=== PATIENT | male | born 1940 | race Caucasian/White ===

== ENCOUNTER 2016-10-18 22:38 | Observation (INO) | payer OTHER, MEDICARE ==
--- NOTE | 2016-10-18 22:53 | CPEKG ---
Heart Rate: 88 RR Interval: 682 P-R Interval: 180 QRSD Interval: 88 QT Interval: 328 QTC Interval: 397 P Powell: 63 QRS Powell: 59 T Wave Powell: 33 EKG Severity - NORMAL ECG - EKG Impression: SINUS RHYTHM Electronically Signed By: Ct Otoole 18-Oct-2016 23:48:08
[2016-10-18 23:13] LABS: % IMMATURE GRANULYOCYTES 0.5 % (0.0-1.1); ABSOLUTE IMMATURE GRANULOCYTES 0.06 10^3/uL (0.00-0.10); ADD DIFF? NO; ADD MORPH? NO; ADD SCAN? NO; ATYPICAL LYMPHOCYTE FLAG 0 (0-99); FRAGMENT RBC FLAG 0 (0-99); HEMATOCRIT 40.4 % (40.0-51.0); LEFT SHIFT FLG 0 (0-99); LIPEMIA HEMOLYSIS FLAG 90 (0-99); MEAN CELL HEMOGLOBIN 33.8 pg (27.9-34.1); MEAN CELL HEMOGLOBIN CONCENTR. 34.7 g/dL (32.4-36.7); MEAN CELL VOLUME 97.6 fL (81.5-99.8); MEAN PLATELET VOLUME 10.5 fL (8.7-11.7); PLATELET CLUMPS FLAG 10 (0-99); PLATELET COUNT 138 10^3/uL (150-400); RED BLOOD CELL COUNT 4.14 10^6/uL (4.40-6.38); RED CELL DISTRIBUTION WIDTH 11.3 % (11.5-15.2)
[2016-10-18 23:24] LABS: ANION GAP 10 mEq/L (8-16); CALCIUM 9.2 mg/dL (8.5-10.4); CARBON DIOXIDE 22 mEq/l (22-31); CHLORIDE 103 mEq/L (97-110); CREATININE 0.8 mg/dL (0.7-1.3); GLOMERULAR FILTRATION RATE > 60; GLUCOSE 130 mg/dL (70-100); POTASSIUM 4.1 mEq/L (3.5-5.2); SODIUM 135 mEq/L (134-144)
[2016-10-18 23:35] LABS: TROPONIN I < 0.012 ng/mL (0-0.034)
--- NOTE | 2016-10-18 23:36 | EDPHY ---
H & P Stated Complaint: SOB Time Seen by Provider: 10/18/16 23:16 HPI/ROS: HPI The patient presents with chest pain and shortness of breath which began 1-2 hours ago while sitting down watching television. His symptoms came on gradually and are moderate in severity. They have been constant. He feels a tight sensation in his mid sternum which does not radiate. This is worse when he takes a deep breath. He felt initially sweaty when his symptoms began. He is reporting mild nausea and mild dizziness. He returned 3 days ago from [facility] on a 10-12 hour flight. He does not have any leg swelling. He does not have any cough or fever. He has no personal or family history of DVT PE. He had routine cardiac stress testing about a year ago which was normal.. REVIEW OF SYSTEMS Constitutional: No fever, no chills. Eyes: No discharge. ENT: No sore throat. Cardiovascular: See HPI Respiratory: No cough, positive for shortness of breath. Gastrointestinal: No abdominal pain, no vomiting. Genitourinary: No hematuria. Musculoskeletal: No back pain. Skin: No rashes. Neurological: No headache. PMHx: Hyperlipidemia Soc Hx: Housed PHYSICAL General Appearance: Alert, no distress Eyes: Pupils equal and round no pallor or injection ENT, Mouth: Mucous membranes moist Respiratory: There are no retractions, lungs are clear to auscultation Cardiovascular: Regular rate and rhythm Gastrointestinal: Abdomen is soft and non-tender, no masses, bowel sounds normal Neurological: A&O, moves all extremities Skin: Warm and dry, no rashes Musculoskeletal: Neck is supple non tender Extremities: symmetrical, full range of motion Psychiatric: Patient is oriented X 3, there is no agitation Source: Patient Exam Limitations: No limitations - Personal History Current Tetanus/Diphtheria Vaccine: Yes Current Tetanus Diphtheria and Acellular Pertussis (TDAP): Yes - Medical/Surgical History Hx Asthma: No Hx Chronic Respiratory Disease: No Hx Diabetes: No Hx Cardiac Disease: No Hx Renal Disease: No Hx Cirrhosis: No Hx Alcoholism: No Hx HIV/AIDS: No Hx Splenectomy or Spleen Trauma: No Other PMH: penis surgery, nasal surgery - Social History Smoking Status: Never smoked Constitutional: Initial Vital Signs Heart Rate 93 10/18/16 22:43 Respiratory Rate 24 H 10/18/16 22:43 Blood Pressure 132/69 H 10/18/16 22:43 O2 Sat (%) 91 L 10/18/16 22:43 O2 Delivery Mode Room Air O2 (L/minute) 2 Allergies/Adverse Reactions: No Known Allergies Allergy (Unverified 10/18/16 22:41) Home Medications: Medication Instructions Recorded Lipitor 10/18/16 Lunesta 10/18/16 Medical Decision Making - Diagnostics EKG Interpretation: EKG: Complete interpretation has been separately recorded in the [facility]Page[employer] archive. Summary impression: Normal sinus rhythm Imaging Results: Imaging Impressions Chest X-Ray 10/18/16 22:53 Impression: Suspect early left lower lobe pneumonia.. CTA chest demonstrates no pulmonary embolism, atelectasis is present, no pneumonia as visualized, discussed with the radiologist. ED Course/Re-evaluation: The patient was monitored in the ER with improvement in his symptoms, treated with only supplemental oxygen. Labs were remarkable for elevated D-dimer, the CT scan of chest was performed which was unremarkable for PE, though did demonstrate a small amount of atelectasis. Given the patient was not symptom free, I plan to admit the patient to the hospitalist service, I have discussed the case with Dr. Gonzalez. Differential Diagnosis: This is a 76-year-old male who comes in with 1-2 hours of chest pain associated with shortness of breath. History is significant from our recent airplane flight of 10:12 a.m. hours. Differential diagnosis includes pulmonary embolism, pneumonia, ACS. - Data Points Laboratory Results: Laboratory Results 10/18/16 23:05 10/18/16 23:05 10/18/16 10/18/16 10/18/16 23:05 23:05 23:05 WBC 11.95 10^3/uL H 10^3/uL (3.80-9.50) RBC 4.14 10^6/uL L 10^6/uL (4.40-6.38) Hgb 14.0 g/dL g/dL (13.7-17.5) Hct 40.4 % % (40.0-51.0) MCV 97.6 fL fL (81.5-99.8) MCH 33.8 pg pg (27.9-34.1) MCHC 34.7 g/dL g/dL (32.4-36.7) RDW 11.3 % L % (11.5-15.2) Plt Count 138 10^3/uL L 10^3/uL (150-400) MPV 10.5 fL fL (8.7-11.7) Neut % (Auto) 84.9 % H % (39.3-74.2) Lymph % (Auto) 6.1 % L % (15.0-45.0) [place] % (Auto) 7.9 % % (4.5-13.0) Eos % (Auto) 0.3 % L % (0.6-7.6) Baso % (Auto) 0.3 % % (0.3-1.7) Nucleat RBC Rel Count 0.0 % % (0.0-0.2) Absolute Neuts (auto) 10.15 10^3/uL H 10^3/uL (1.70-6.50) Absolute Lymphs (auto) 0.73 10^3/uL L 10^3/uL (1.00-3.00) Absolute Monos (auto) 0.94 10^3/uL H 10^3/uL (0.30-0.80) Absolute Eos (auto) 0.04 10^3/uL 10^3/uL (0.03-0.40) Absolute Basos (auto) 0.03 10^3/uL 10^3/uL (0.02-0.10) Absolute Nucleated RBC 0.00 10^3/uL 10^3/uL (0-0.01) Immature Gran % 0.5 % % (0.0-1.1) Immature Gran # 0.06 10^3/uL 10^3/uL (0.00-0.10) D-Dimer 0.77 ug/mLFEU H ug/mLFEU (0.00-0.50) Sodium 135 mEq/L mEq/L (134-144) Potassium 4.1 mEq/L mEq/L (3.5-5.2) Chloride 103 mEq/L mEq/L (97-110) Carbon Dioxide 22 mEq/l mEq/l (22-31) Anion Gap 10 mEq/L mEq/L (8-16) BUN 17 mg/dL mg/dL (7-23) Creatinine 0.8 mg/dL mg/dL (0.7-1.3) Estimated GFR > 60 Glucose 130 mg/dL H mg/dL (70-100) Calcium 9.2 mg/dL mg/dL (8.5-10.4) Troponin I < 0.012 ng/mL ng/mL (0-0.034) Medications Given: Discontinued Medications Albuterol/Ipratropium (Duoneb) 3 ml IH EDNOW ONE Stop: 10/19/16 00:52 Last Admin: 10/19/16 01:38 Dose: 3 ml Ondansetron HCl (Zofran) 4 mg IVP EDNOW ONE Stop: 10/19/16 00:13 Last Admin: 10/19/16 00:13 Dose: 4 mg Departure - Departure Disposition: [facility] Inpatient Acute Clinical Impression: Chest pain Qualifiers: Chest pain type: unspecified Qualified Code(s): R07.9 - Chest pain, unspecified Condition: Fair
[2016-10-18] MEDS ORDERED: IOPAMIDOL (ISOVUE 370) 100 ML BTL IV ONE (23:38)
[2016-10-18] MEDS ORDERED: ONDANSETRON 4 MG/2 ML VIAL ONE (23:59)
[2016-10-19] MEDS ORDERED: ONDANSETRON 4 MG/2 ML VIAL IVP ONE (00:12)
[2016-10-19] MEDS ORDERED: IPRATROPIUM/ALBUTEROL 3 ML DEYVIAL IH ONE (00:51)
[2016-10-19] MEDS ORDERED: ONDANSETRON DISINTEGRATING 4 MG TAB PO PRN (01:20)
[2016-10-19] MEDS ORDERED: HYDROCODONE/APAP 5/325 TAB PO PRN (01:20)
[2016-10-19] MEDS ORDERED: ONDANSETRON 4 MG/2 ML VIAL IVP PRN (01:20)
[2016-10-19] MEDS ORDERED: ACETAMINOPHEN 325 MG TAB PO PRN (01:20)
[2016-10-19] MEDS ORDERED: ALBUTEROL 3 ML DEYVIAL IH PRN (01:20)
--- NOTE | 2016-10-19 01:28 | PDGENHP ---
History and Physical - Chief Complaint chest pain - History of Present Illness Patient is a 70 year old male with HLD who presents to the ED with complaint of substernal chest pain. Patient states symptoms started this afternoon with a feeling a dyspnea due to pain with deep inspiration. He describes the pain as pressure like, located in his upper sternum, nonradiating. He denies any associated palpitations, cough, headache, dizziness or lightheadedness. His pain symptoms progressed and began to make him feel significantly short of breath, so he came to the ED for further evaluation. He does report one episode of nausea and vomiting just prior to arrival in the ED, which was associated with chills. Of note, patient and his have recently travelled from a vacation in [facility], arrived back in [place] on 10/15. On arrival to the ED, patient was afebrile and hemodynamically stable. Labs revealed mild leukocytosis, normal bmp, negative troponin. EKG showed normal sinus rhythim without obvious ischemic changes. Ddimer was elevated, so CT angio chest was obtained to rule out pe. CT was negative for pulmonary embolism , showed bibasilar atelectasis. History Information - Allergies/Home Medication List Allergies/Adverse Reactions: No Known Allergies Allergy (Unverified 10/18/16 22:41) Home Medications: Lipitor 10/18/16 [Last Taken Unknown] Lunesta 10/18/16 [Last Taken Unknown] I have personally reviewed and updated: family history, medical history, social history, surgical history - Past Medical History Additional medical history: hyperlipidemia - Surgical History Additional surgical history: L4-L5 kyphoplasty. nasal septum surgery - Family History Positive for: non-pertinent - Social History Smoking Status: Never smoked Alcohol Use: Occasionally (1- 2 glasses wine nightly) Drug Use: None Additional social history: Patient is retired, formerly worked in [employer]. Lives with his , independent in ADLs. Review of Systems ROS: 10pt was reviewed & negative except for what was stated in HPI & below Physical Exam Temp Pulse Resp BP Pulse Ox 93 24 H 125/74 H 93 10/18/16 22:43 10/18/16 22:43 10/19/16 00:00 10/18/16 23:01 Constitutional: no apparent distress, appears nourished, not in pain Eyes: PERRL, anicteric sclera, EOMI Ears, Nose, Mouth, Throat: moist mucous membranes, hearing normal, ears appear normal, no oral mucosal ulcers Cardiovascular: regular rate and rhythym, no murmur, rub, or gallop, pulses symmetric bilaterally, No JVD, No edema Peripheral Pulses: 2+: dorsalis-pedis (R), dorsalis-pedis (L) Respiratory: no respiratory distress, no rales or rhonchi, clear to auscultation Gastrointestinal: normoactive bowel sounds, soft, non-tender abdomen, no palpable masses, No tenderness, No guarding, No rebound Genitourinary: no bladder fullness, no bladder tenderness Skin: warm, normal color, no rashes or abrasions, no fluctuance, no induration, No mottled Musculoskeletal: full muscle strength, no muscle tenderness, normal joint ROM, no joint effusions Neurologic: AAOx3, sensation intact bilaterally, CN II-XII Intact, No weakness, No numbness, No facial droop Psychiatric: interacting appropriately, not anxious, not encephalopathic, thought process linear Lab Data & Imaging Review 10/18/16 23:05 10/18/16 23:05 WBC 11.95 10^3/uL (3.80-9.50) H 10/18/16 23:05 RBC 4.14 10^6/uL (4.40-6.38) L 10/18/16 23:05 Hgb 14.0 g/dL (13.7-17.5) 10/18/16 23:05 Hct 40.4 % (40.0-51.0) 10/18/16 23:05 MCV 97.6 fL (81.5-99.8) 10/18/16 23:05 MCH 33.8 pg (27.9-34.1) 10/18/16 23:05 MCHC 34.7 g/dL (32.4-36.7) 10/18/16 23:05 RDW 11.3 % (11.5-15.2) L 10/18/16 23:05 Plt Count 138 10^3/uL (150-400) L 10/18/16 23:05 MPV 10.5 fL (8.7-11.7) 10/18/16 23:05 Neut % (Auto) 84.9 % (39.3-74.2) H 10/18/16 23:05 Lymph % (Auto) 6.1 % (15.0-45.0) L 10/18/16 23:05 [place] % (Auto) 7.9 % (4.5-13.0) 10/18/16 23:05 Eos % (Auto) 0.3 % (0.6-7.6) L 10/18/16 23:05 Baso % (Auto) 0.3 % (0.3-1.7) 10/18/16 23:05 Nucleat RBC Rel Count 0.0 % (0.0-0.2) 10/18/16 23:05 Absolute Neuts (auto) 10.15 10^3/uL (1.70-6.50) H 10/18/16 23:05 Absolute Lymphs (auto) 0.73 10^3/uL (1.00-3.00) L 10/18/16 23:05 Absolute Monos (auto) 0.94 10^3/uL (0.30-0.80) H 10/18/16 23:05 Absolute Eos (auto) 0.04 10^3/uL (0.03-0.40) 10/18/16 23:05 Absolute Basos (auto) 0.03 10^3/uL (0.02-0.10) 10/18/16 23:05 Absolute Nucleated RBC 0.00 10^3/uL (0-0.01) 10/18/16 23:05 Immature Gran % 0.5 % (0.0-1.1) 10/18/16 23:05 Immature Gran # 0.06 10^3/uL (0.00-0.10) 10/18/16 23:05 D-Dimer 0.77 ug/mLFEU (0.00-0.50) H 10/18/16 23:05 Sodium 135 mEq/L (134-144) 10/18/16 23:05 Potassium 4.1 mEq/L (3.5-5.2) 10/18/16 23:05 Chloride 103 mEq/L (97-110) 10/18/16 23:05 Carbon Dioxide 22 mEq/l (22-31) 10/18/16 23:05 Anion Gap 10 mEq/L (8-16) 10/18/16 23:05 BUN 17 mg/dL (7-23) 10/18/16 23:05 Creatinine 0.8 mg/dL (0.7-1.3) 10/18/16 23:05 Estimated GFR > 60 10/18/16 23:05 Glucose 130 mg/dL (70-100) H 10/18/16 23:05 Calcium 9.2 mg/dL (8.5-10.4) 10/18/16 23:05 Troponin I < 0.012 ng/mL (0-0.034) 10/18/16 23:05 Visualized and Interpreted Chest x-ray results: Yes Chest X-Ray results: no infiltrate Visualized and Interpreted imaging results: Yes Interpretation: CT angio chest: no PE, bibasilar atelectasis Visualized and Interpreted EKG results: Yes EKG Interpretation: Positive for: normal sinsus rhythm Assessment & Plan Assessment: Patient is a 76 year old male with hyperlipidemia who presents to the ED with complaint of pleuritic-type chest pain. ED evaluation reveals nonischemic EKG, negative initial troponin. CT chest negative for PE, mild leukocytosis. Plan: # chest pain Patient's description of the pain sounds pleuritic in nature. He is also describing URI type symptoms with nausea and one episode of vomiting. Given this , suspect a viral syndrome has precipitated a pleurisy vs pericarditis type chest pain. However, given patient's age and history of HLD, will also rule out ACS and check AM TTE. Patient reports a normal stress test about 3 years ago. - monitor troponins/EKG serially - check lipid panel, TSH - check TTE - trial of NSAIDs for pleuritic pain # leukocytosis Does not meet SIRS/Sepsis criteria. Patient reports recent air travel (approx 10 hour fright 3 days ago). [address] chest does not show pneumonia. Suspect viral etiology. Will continue to follow, check UA. # dispo: admit to observation status # gen: cardiac diet DVT ppx: lovenox Full code
[2016-10-19] MEDS ORDERED: NS 1,000 ML IV SCH (01:30)
[2016-10-19 02:23] LABS: COLOR YELLOW; LEUKOCYTE ESTERASE,URINE NEGATIVE (NEGATIVE); NITRITE,URINE NEGATIVE (NEGATIVE)
[2016-10-19] MEDS ORDERED: KETOROLAC 15 MG/1 ML SDV IVP SCH (06:00)
[2016-10-19 06:08] LABS: % IMMATURE GRANULYOCYTES 0.4 % (0.0-1.1); ABSOLUTE IMMATURE GRANULOCYTES 0.04 10^3/uL (0.00-0.10); ADD DIFF? NO; ADD MORPH? NO; ADD SCAN? NO; ATYPICAL LYMPHOCYTE FLAG 0 (0-99); FRAGMENT RBC FLAG 0 (0-99); HEMOGLOBIN 13.6 g/dL (13.7-17.5); LEFT SHIFT FLG 10 (0-99); LIPEMIA HEMOLYSIS FLAG 80 (0-99); MEAN CELL HEMOGLOBIN 34.2 pg (27.9-34.1); MEAN CELL HEMOGLOBIN CONCENTR. 33.2 g/dL (32.4-36.7); MEAN PLATELET VOLUME 11.4 fL (8.7-11.7); PLATELET CLUMPS FLAG 10 (0-99); PLATELET COUNT 123 10^3/uL (150-400); RED BLOOD CELL COUNT 3.98 10^6/uL (4.40-6.38); RED CELL DISTRIBUTION WIDTH 11.4 % (11.5-15.2)
[2016-10-19 06:19] LABS: ANION GAP 9 mEq/L (8-16); CALCIUM 9.2 mg/dL (8.5-10.4); CARBON DIOXIDE 22 mEq/l (22-31); CHLORIDE 104 mEq/L (97-110); CHOLESTEROL 133 mg/dL (140-220); CHOLESTEROL/HDL RATIO 2.83 RATIO (1.00-4.97); CREATININE 0.8 mg/dL (0.7-1.3); GLOMERULAR FILTRATION RATE > 60; GLUCOSE 161 mg/dL (70-100); HIGH DENSITY LIPOPROTEIN 47 mg/dL (40-65); LDL/HDL RATIO 1.64 RATIO (1.00-3.64); LOW DENSITY LIPOPROTEIN 77 mg/dL (80-100); MAGNESIUM 1.8 mg/dL (1.6-2.3); NON-HIGH DENSITY LIPOPROTEIN 86 mg/dL (90-129); POTASSIUM 4.5 mEq/L (3.5-5.2); SODIUM 135 mEq/L (134-144); TRIGLYCERIDE 49 mg/dL (40-150); VERY LOW DENSITY LIPOPROTEINS 9 mg/dL (8-25)
[2016-10-19 06:20] LABS: APTT 28.6 SEC (23.0-38.0); INR 1.11 (0.83-1.16); PROTIME(PATIENT) 14.2 SEC (12.0-15.0)
[2016-10-19 06:30] LABS: CREATINE KINASE-MB FRACTION 0.83 ng/mL (0-3.19); TROPONIN I < 0.012 ng/mL (0-0.034)
[2016-10-19 07:42] VITALS: TEMP 98.4
[2016-10-19] MEDS ORDERED: ATORVASTATIN CALCIUM 10 MG TAB PO SCH (09:00)
[2016-10-19] MEDS ORDERED: ENOXAPARIN 40 MG/0.4 ML SYR SC SCH (09:00)
--- NOTE | 2016-10-19 09:03 | CPEKG ---
Heart Rate: 75 RR Interval: 800 P-R Interval: 196 QRSD Interval: 90 QT Interval: 356 QTC Interval: 398 P Lena: 64 QRS Lena: 54 T Wave Lena: 37 EKG Severity - ABNORMAL ECG - EKG Impression: SINUS RHYTHM EKG Impression: ST ELEVATION SUGGESTS PERICARDITIS Electronically Signed By: Fortino Mota 20-Oct-2016 16:50:27
[2016-10-19] MEDS ORDERED: COLCHICINE 0.6 MG CAP/TAB PO SCH (09:30)
[2016-10-19 10:20] LABS: HEMATOCRIT 40.9 % (40.0-51.0)
--- NOTE | 2016-10-19 10:46 | ECHO ---
[id number] + + [address] : : [place] [address] : : [phone] + Adult Echocardiographic Report + -------+ :Name: CHANTELL TATE Sisi Date: 10/19/2016 08:37 AM : : Hospital Admission Number: [id number] Locati on: 201: :: 1940 Gender: Male Height: 72 in : :Age: 76 yrs Race: WH Weight: 215 lb : :Reason For Study: Eval LV Fx, Pericarditis : : BSA: 2.2 meter s2 : :History: Chest Pain, Mild LE Edema : + -------+ MMode/2D Measurements \T\ Calculations IVSd: 1.1 cm RVDd: 4.0 cm FS: 41.4 % Ao root diam: 3.1 cm LVPWd: 1.2 cm LVIDd: 4.3 cm EDV(Teich): 84.4 ml ACS: 1.8 cm LVIDs: 2.5 cm ESV(Teich): 23.1 ml LA dimension: 5.6 cm EF(Teich): 72.6 % Normal Measurement Values: + + :LVIDd (3.5-5.7cm) IVSd (0.6-1.1cm) LVPWd (0.6-1.1cm) Aortic Root (2.0-3.7cm)Left Atrium (1.5-4.0cm): :LV Vol(d) (76-115ml) LV Vol(s) (29-48ml) Ejec Fraction (50-65%)PV Davy (0.6- 1.2m/s) TV Davy (0.4-1.0m/s) : :MV E Davy (0.8-1.0m/s)MV A Davy (0.3-1.0m/s)LVOT Davy (0.7-1.2m/s) Asc Ao Davy ( 0.9-1.8m/s) : + + Doppler Measurements \T\ Calculations MV E max davy: Ao V2 max: AI max davy: LV V1 max: 65.6 cm/sec 124.9 cm/sec 224.0 cm/sec 86.9 cm/sec MV A max davy: Ao max P.2 mmHgAI max P.1 mmHg LV V1 max P.2 cm/sec AI dec slope: 3.0 mmHg MV E/A: 1.1 113.1 cm/sec2 AI P1/2t: 580.1 msec PA V2 max: PI end-d davy: TR max davy: 84.2 cm/sec 100.4 cm/sec 256.5 cm/sec PA max PG: TR max P.3 mmHg 2.8 mmHg RAP systole: 5.0 mmHg RVSP(TR): 31.3 mmHg Left Ventricle The left ventricle is normal in size. There is normal left ventricular wall thickness. The left ventricular ejection fraction is normal. There is Doppler evidence for diastolic dysfunction. Ejection Fraction = 73%. The left ventricular wall motion is normal. Right Ventricle The right ventricle is mildly dilated. The right ventricular systolic function is normal. Atria The left atrium is mildly dilated. Right atrial size is normal. Mitral Valve The mitral valve is normal. There is no evidence of mitral valve prolapse. There is no mitral valve stenosis. There is trace mitral regurgitation. Tricuspid Valve Normal tricuspid valve. There is mild tricuspid regurgitation. Right ventricular systolic pressure is normal. Aortic Valve The aortic valve opens well. There is no aortic stenosis. Trace to mild aortic regurgitation. Pulmonic Valve The pulmonic valve is normal in structure and function. There is no pulmonic valvular regurgitation. Great Vessels The aortic root is normal size. Pericardium/Pleural There is no pericardial effusion. Conclusion A complete two-dimensional transthoracic echocardiogram was performed (2D, M-mode, Doppler and color flow Doppler). The left ventricular ejection fraction is normal. There is Doppler evidence for diastolic dysfunction. Ejection Fraction = 73%. The left ventricular wall motion is normal. The left atrium is mildly dilated. The mitral valve is normal. There is trace mitral regurgitation. There is mild tricuspid regurgitation. Right ventricular systolic pressure is normal. The aortic valve opens well. Trace to mild aortic regurgitation. There is no pericardial effusion. No prior echo Final Reading Physician: Dr Jonelle Santana electronically signed on 10/19/2016 10:44 AM Ordering Physician: Reyna Gonzalez Performed By: Bruce Lyn, FARZANACS
[2016-10-19 11:38] VITALS: BP 116/62; PULSE 72; RESP 20; O2SAT 93
[2016-10-19] MEDS ORDERED: IBUPROFEN 600 MG TAB PO SCH (12:00)
[2016-10-19] MEDS ORDERED: IBUPROFEN 800 MG TAB PO SCH (12:00)
--- NOTE | 2016-10-19 19:04 | GDS ---
[f rep st] DISCHARGE SUMMARY DISCHARGE DIAGNOSIS: Acute viral pericarditis. HISTORY: The patient is a 76-year-old male, who presented with severe pleuritic chest pain. CT ang iogram of the chest was negative for PE. Repeat EKG in the morning clearly evolved to show changes consistent with acute pericarditis. He was also noted to have a pericardial rub. He was treated wi th NSAID therapy and his pleuritic pain improved. His echocardiogram did not show any evidence of a pericardial effusion. I spoke with Cardiology, who recommended a 3-month course of oral colchicine . He will take NSAIDs for 1 week and then they can be discontinued. Close outpatient followup with Cardiology is being arranged. DISCHARGE MEDICATIONS: Please see computerized record for full detailed list. New medications: 1. Colchicine 0.6 mg p.o. b.i.d. for 3 months. 2. Motrin 600 mg p.o. q.8 hours for 1 week. 3. Pepcid 20 mg p.o. twice daily for 1 week while on NSAIDs. ADDITIONAL DISCHARGE INSTRUCTIONS: Follow up with Cardiology 1-2 weeks. Patient was seen and examined by me on the day of discharge. /[id number]/MODL
[2016-10-19] MEDS ORDERED: ESZOPICLONE 2 MG PO SCH (21:00)
[2016-10-19] MEDS ORDERED: FAMOTIDINE 20 MG TAB PO SCH (21:00)
[2016-10-19] MEDS ORDERED: ZOLPIDEM TARTRATE 5 MG TAB PO SCH (21:00)
== END 2016-10-19 13:40 | disposition home or self-care (01) ==
LOC: F2W 10-19 01:51
PROVIDERS: ADMIT Internal Medicine; ATTEND Internal Medicine
DX: I30.1 Infective pericarditis (principal); J98.11 Atelectasis
CPT/HCPCS: 71020; 71275; 93005; 93306; G0378; J1650; J1885; J2405; Q9967; 96374

== ENCOUNTER → 2016-11-20 | Outpatient (CLI) | payer OTHER, MEDICARE | LOC: BHFA 10:45 | PROVIDERS: ATTEND Internal Medicine Cardiovascular Disease | DX: R07.9 Chest pain, unspecified (principal); I31.9 Disease of pericardium, unspecified ==

== ENCOUNTER → 2016-11-30 | Outpatient (CLI) | payer OTHER, MEDICARE | LOC: BHFA 13:30 | PROVIDERS: ATTEND Internal Medicine Cardiovascular Disease | DX: R07.9 Chest pain, unspecified (principal); I31.9 Disease of pericardium, unspecified ==

== ENCOUNTER → 2016-12-12 | Outpatient (CLI) | payer OTHER, MEDICARE | LOC: BHLMT 11:30 | PROVIDERS: ATTEND Internal Medicine Interventional Cardiology | DX: R07.9 Chest pain, unspecified (principal); R94.39 Abnormal result of other cardiovascular function study; I31.9 Disease of pericardium, unspecified | CPT/HCPCS: 93017-PO; 93350-PO ==

== ENCOUNTER 2017-09-13 15:00 | Emergency (ER) | payer OTHER, MEDICARE ==
[2017-09-13] MEDS ORDERED: LET GEL TOPICAL 1 EA SYR TP ONE ×2 (16:03→16:11)
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
[2017-09-13 17:20] VITALS: BP 114/62
== END 2017-09-13 17:20 | disposition home or self-care (01) ==
DX: S60.511A Abrasion of right hand, initial encounter (principal); S60.512A Abrasion of left hand, initial encounter; S80.211A Abrasion, right knee, initial encounter; S70.311A Abrasion, right thigh, initial encounter; V18.4XXA Pedal cycle driver injured in noncollision transport accident in traffic accident, initial encounter; Y92.410 Unspecified street and highway as the place of occurrence of the external cause; Y99.8 Other external cause status; Y93.89 Activity, other specified

== ENCOUNTER → 2017-10-01 | Outpatient (CLI) | payer OTHER, MEDICARE | LOC: FCPNEURO 23:29 | PROVIDERS: ATTEND Psychiatry & Neurology Sleep Medicine | DX: G47.33 Obstructive sleep apnea (adult) (pediatric) (principal); G47.39 Other sleep apnea ==